=== PATIENT | female | born 1965 | race Caucasian/White ===

== ENCOUNTER 2024-02-01 10:28 | Emergency (ER) | payer OTHER ==
[2024-02-01 10:36] VITALS: BP 150/89; PULSE 91; RESP 18; TEMP 98
--- NOTE | 2024-02-01 12:04 | ED ---
Alcohol HPI - General Chief Complaint: Alcohol Stated Complaint: ETOH Time Seen by Provider: 02/01/24 10:35 Source: patient Mode of arrival: ambulatory Limitations: no limitations - History of Present Illness Initial Comments: 58-year-old female presents to the emergency department for alcohol intoxication. Patient was attempting to check into [facility]. She states that she drank a pint of fireball before going in. Patient was acting belligerent and therefore they wanted medical clearance before she is admitted. She denies any other substance abuse other than alcohol. She does express desire to quit. Patient is agitated that she had to be brought into the emergency department as she "just wants to go to rehab." - Related Data Home Medications Medication Instructions Recorded Confirmed Dextroamphetamine/Amphetamine 15 mg PO BID 02/01/24 02/01/24 [Adderall] Folic Acid 1 mg PO DAILY 02/01/24 02/01/24 Gabapentin 300 mg PO TID 02/01/24 02/01/24 Montelukast [Singulair] 10 mg PO DAILY 02/01/24 02/01/24 Venlafaxine HCl [Effexor XR] 75 mg PO DAILY 02/01/24 02/01/24 Vitamin B Complex 1 cap PO DAILY 02/01/24 02/01/24 amLODIPine [Norvasc] 5 mg PO DAILY 02/01/24 02/01/24 buPROPion XL [Wellbutrin XL] 300 mg PO DAILY 02/01/24 02/01/24 diazePAM [Valium] 5 mg PO QID 02/01/24 02/01/24 tiZANidine [Zanaflex] 4 mg PO TID 02/01/24 02/01/24 Albuterol Inhaler [Ventolin Hfa 2 puff INHALATION Q6HR 02/04/24 02/04/24 Inhaler] Fluticasone/Umeclidin/Vilanter 1 puff INHALATION DAILY 02/04/24 02/04/24 [Trelegy Ellipta 100-62.5-25] Allergies Allergy/AdvReac Type Severity Reaction Status Date / Time No Known Allergies Allergy Verified 02/01/24 19:09 Review of Systems ROS Statement: Those systems with pertinent positive or pertinent negative responses have been documented in the HPI. ROS Other: All systems not noted in ROS Statement are negative. Past Medical History Past Medical History: COPD Additional Past Medical History / Comment(s): withdrawl seizure. History of Any Multi-Drug Resistant Organisms: None Reported Past Surgical History: Bariatric Surgery, Section, Hernia Repair, Hysterectomy, Tonsillectomy Past Psychological History: No Psychological Hx Reported, Anxiety, Depression Smoking Status: Current every day smoker Past Alcohol Use History: Abuse, Daily, Heavy Past Drug Use History: None Reported General Exam Limitations: altered mental status General appearance: alert, appears intoxicated Head exam: Present: atraumatic, normocephalic, normal inspection Eye exam: Present: normal appearance, PERRL, EOMI. Absent: scleral icterus, conjunctival injection, periorbital swelling ENT exam: Present: normal exam, mucous membranes moist Respiratory exam: Present: normal lung sounds bilaterally. Absent: respiratory distress, wheezes, rales, rhonchi, stridor Cardiovascular Exam: Present: regular rate GI/Abdominal exam: Present: soft, normal bowel sounds. Absent: distended, tenderness, guarding, rebound, rigid Course Vital Signs 02/01/24 10:30 Temperature 98 F Pulse Rate 91 Respiratory 18 Rate Blood Pressure 150/89 O2 Sat by Pulse 98 Oximetry Medical Decision Making - Medical Decision Making Was pt. sent in by a medical professional or institution (, PA, STONE DRILLER HELPER, urgent care, hospital, or long-term...) When possible be specific @ -Patient sent in from [facility] Did you speak to anyone other than the patient for history (EMS, parent, family, police, friend...)? What history was obtained from this source @ -Spoke with EMS for history Did you review nursing and triage notes (agree or disagree)? Why? @ -I reviewed and agree with nursing and triage notes Were old charts reviewed (outside hosp., previous admission, EMS record, old EKG, old radiological studies, urgent care reports/EKG's, long-term records)? Report findings @ -I reviewed the chart from [facility] Differential Diagnosis (chest pain, altered mental status, abdominal pain women, abdominal pain men, vaginal bleeding, weakness, fever, dyspnea, syncope, headache, dizziness, GI bleed, back pain, seizure, CVA, palpatations, mental health, musculoskeletal)? @ -Differential Mental Health Depression, anxiety, bipolar, psychosis, schizophrenia, borderline personality, situational depression, adjustment disorder, behavioral disorder, brain tumor, malingering, substance abuse, encephalopathy, medication reaction, dementia, hypothyroidism, degenerative neurologic disorder, lupus.... This is not meant to be all-inclusive list EKG interpreted by me (3pts min.). @ -Not done X-rays interpreted by me (1pt min.). @ -None done CT interpreted by me (1pt min.). @ -None done U/S interpreted by me (1pt. min.). @ -None done What testing was considered but not performed or refused? (CT, X-rays, U/S, labs)? Why? @ -EPS clearance however patient states that she never made any comments about being suicidal What meds were considered but not given or refused? Why? @ -None Did you discuss the management of the patient with other professionals (professionals i.e. , PA, STONE DRILLER HELPER, lab, RT, psych nurse, social sciences instructor, production team manager, teacher, hydrographical technical officer, vocational case manager)? Give summary @ -No Was smoking cessation discussed for >3mins.? @ -No Was critical care preformed (if so, how long)? @ -No Were there social determinants of health that impacted care today? How? (Homelessness, low income, unemployed, alcoholism, drug addiction, transportation, low edu. Level, literacy, decrease access to med. care, fpc, rehab)? @ -Patient is trying to go to rehab Was there de-escalation of care discussed even if they declined (Discuss DNR or withdrawal of care, Hospice)? DNR status @ -No What co-morbidities impacted this encounter? (DM, HTN, Smoking, COPD, CAD, Cancer, CVA, ARF, Chemo, Hep., AIDS, mental health diagnosis, sleep apnea, morbid obesity)? @ -Alcohol abuse Was patient admitted / discharged? Hospital course, mention meds given and route, prescriptions, significant lab abnormalities, going to OR and other pertinent info. @ -Upon arrival patient seen and evaluated in hallway 18. Thorough history and physical exam was performed. Patient is agitated that she is transferred to our facility. She does not understand why her rehab facility cannot accept her while she is intoxicated. Patient's alcohol level is only 0.187. She is observed in the emergency department until she is clinically sober. At this time we do attempt to transfer the patient back to [facility]. They report that they cannot take the patient back because she made some suicidal comments while she was at the facility. They failed to send the patient was the petitioned. EMS never reported to us that she made suicidal comments and the patient is denying suicidal or homicidal comments to us. There is no hallucinating. Patient does not want to wait for a psychiatric evaluation so that she can complete the demands that [facility] has. I do not feel that I can hold the patient for psychiatric evaluation as I have no petition on record and patient is denying all symptoms to me. It is suggested to [facility] that they send a petition with the patient should they feel that they need a mental health evaluation. Patient was discharged with the understanding that she cannot go back to [facility] at this time Undiagnosed new problem with uncertain prognosis? @ -No Drug Therapy requiring intensive monitoring for toxicity (Heparin, Nitro, Insulin, Cardizem)? @ -No Were any procedures done? @ -No Diagnosis/symptom? @ -Acute alcohol intoxication Acute, or Chronic, or Acute on Chronic? @ -Acute Uncomplicated (without systemic symptoms) or Complicated (systemic symptoms)? @ -Uncomplicated Side effects of treatment? @ -No Exacerbation, Progression, or Severe Exacerbation? @ -No Poses a threat to life or bodily function? How? (Chest pain, USA, ID, pneumonia, PE, COPD, DKA, ARF, appy, cholecystitis, CVA, Diverticulitis, Homicidal, Suicidal, threat to staff... and all critical care pts) @ -No Disposition Clinical Impression: Alcoholic intoxication Disposition: HOME SELF-CARE Condition: Stable Instructions (If sedation given, give patient instructions): Alcohol Intox ication (ED) Additional Instructions: You are being transferred back to [facility] for rehab Is patient prescribed a controlled substance at d/c from ED?: No Referrals: None,Stated [Primary Care Provider] - 1-2 days Time of Disposition: 12:04
== END 2024-02-01 13:30 | disposition home or self-care (01) ==
LOC: EC 10:28
CPT/HCPCS: 99284

== ENCOUNTER 2024-02-01 16:21 | Inpatient (IN) | payer OTHER ==
--- NOTE | 2024-02-01 16:41 | ED ---
Psych HPI - General Source: patient, RN notes reviewed <Delaney Lion - Last Filed: 02/01/24 16:39> <Jeff Elkins - Last Filed: 02/01/24 22:10> - General Stated Complaint: ETOH, suicidal ideation Time Seen by Provider: 02/01/24 16:39 - History of Present Illness Initial Comments: Quick note-58 year old female presents emergency department chief complaint of alcohol taxation suicidal ideation. Patient was seen earlier this morning and was discharged back to [facility]. The patient is denying suicidal ideation. States that she drinks approximately 1 pint of alcohol per day with the last drink being at 09 100 this morning. (Delaney Lion) Dictation was produced using [employer] dictation software. please excuse any grammatical, word or spelling errors. Chief Complaint: 58-year-old female presents to the ER for mental evaluation History of Present Illness: Patient 58-year-old female who presents to the emergency department for mental evaluation. She is trying to get into [facility] for alcohol detox. States that they did not want her admitted there until she was evaluated for mental health. Is not sure why. She does report having history of suicidal ideation. States that she did not want to be evaluated by mental health earlier today was discharged. She Erika presents to the emergency department because she wants to try to get into [facility] for alcohol detox. States that she has been hospitalized before for alcohol withdra wal. Her last drink was earlier this morning. Patient started to feel shaky. The ROS documented in this emergency department record has been reviewed and confirmed by me. Those systems with pertinent positive or negative responses have been documented in the HPI. All other systems are other negative and/or noncontributory. (Jeff Elkins) - Related Data Home Medications Medication Instructions Recorded Confirmed Dextroamphetamine/Amphetamine 15 mg PO BID 02/01/24 02/01/24 [Adderall] Folic Acid 1 mg PO DAILY 02/01/24 02/01/24 Gabapentin 300 mg PO TID 02/01/24 02/01/24 Montelukast [Singulair] 10 mg PO DAILY 02/01/24 02/01/24 Venlafaxine HCl [Effexor XR] 75 mg PO DAILY 02/01/24 02/01/24 Vitamin B Complex 1 cap PO DAILY 02/01/24 02/01/24 amLODIPine [Norvasc] 5 mg PO DAILY 02/01/24 02/01/24 buPROPion XL [Wellbutrin XL] 300 mg PO DAILY 02/01/24 02/01/24 diazePAM [Valium] 5 mg PO QID 02/01/24 02/01/24 tiZANidine [Zanaflex] 4 mg PO TID 02/01/24 02/01/24 Allergies Allergy/AdvReac Type Severity Reaction Status Date / Time No Known Allergies Allergy Verified 02/01/24 19:09 Review of Systems ROS Other: All systems not noted in ROS Statement are negative. <Delaney Lion - Last Filed: 02/01/24 16:39> ROS Other: All systems not noted in ROS Statement are negative. <Jeff Elkins - Last Filed: 02/01/24 22:10> ROS Statement: Those systems with pertinent positive or pertinent negative responses have been documented in the HPI. Past Medical History Past Medical History: COPD Additional Past Medical History / Comment(s): withdrawl seizure. History of Any Multi-Drug Resistant Organisms: None Reported Past Surgical History: Bariatric Surgery, Section, Hernia Repair, Hysterectomy, Tonsillectomy Past Psychological History: No Psychological Hx Reported, Anxiety, Depression Smoking Status: Current every day smoker Past Alcohol Use History: Abuse, Daily, Heavy Past Drug Use History: None Reported <Delaney Lion - Last Filed: 02/01/24 16:39> General Exam <Delaney Lion - Last Filed: 02/01/24 16:39> <Jeff Elkins - Last Filed: 02/01/24 22:10> - General Exam Comments Initial Comments: Visual Physical Exam Vital signs reviewed General: Well-appearing, nontoxic, no acute distress. Head: Normocephalic, atraumatic Eyes: PERRLA, EOMI ENT: Airway patent Chest: Nonlabored breathing Skin: No visual rash, normal skin tone Neuro: Alert and oriented 3 Musculoskeletal: No gross abnormalities (Delaney Lion) PHYSICAL EXAM: General Impression: Alert and oriented x3, mildly tremulous HEENT: Normocephalic atraumatic, extra-ocular movements intact, pupils equal and reactive to light bilaterally, mucous membranes moist. Cardiovascular: Heart regular rate and rhythm Chest: Able to complete full sentences, no retractions, no tachypnea Abdomen: abdomen soft, non-tender, non-distended, no organomegaly Musculoskeletal: Pulses present and equal in all extremities, no peripheral edema Motor: no focal deficits noted Neurological: CN II-XII grossly intact, no focal motor or sensory deficits noted Skin: Intact with no visualized rashes Psych: Normal affect and mood (Jeff Elkins) Course Vital Signs 02/01/24 02/01/24 02/01/24 16:53 18:01 19:24 Temperature 97.9 F Pulse Rate 85 71 Respiratory 18 20 18 Rate Blood Pressure 143/93 129/89 127/82 O2 Sat by Pulse 97 99 99 Oximetry 02/01/24 20:44 Temperature Pulse Rate 70 Respiratory 16 Rate Blood Pressure 125/75 O2 Sat by Pulse 97 Oximetry Medical Decision Making <Delaney Lion - Last Filed: 02/01/24 16:39> - Lab Data Result diagrams: 02/01/24 18:27 02/01/24 18:27 <Jeff Elkins - Last Filed: 02/01/24 22:10> - Medical Decision Making I completed the quick note portion of this chart signed Delaney Lion PA-C (Delaney Lion) Was pt. sent in by a medical professional or institution ([facility]T [facility], CARRIER LOADER, urgent care, hospital, or residential...) When possible be specific @ -No Did you speak to anyone other than the patient for history (EMS, parent, family, police, friend...)? What history was obtained from this source @ -No Did you review nursing and triage notes (agree or disagree)? Why? @ -I reviewed and agree with nursing and triage notes Were old charts reviewed (outside hosp., previous admission, EMS record, old EKG, old radiological studies, urgent care reports/EKG's, residential records)? Report findings @ -No old charts were reviewed Differential Diagnosis (chest pain, altered mental status, abdominal pain women, abdominal pain men, vaginal bleeding, musculoskeletal, weakness, fever, dyspnea, syncope, headache, dizziness, GI bleed, back pain, seizure, CVA, palpatations, mental health)? @ -Differential Mental Health: Depression, anxiety, bipolar, psychosis, schizophrenia, borderline personality, situational depression, adjustment disorder, behavioral disorder, brain tumor, malingering, substance abuse, encephalopathy, medication reaction, dementia, hypothyroidism, degenerative neurologic disorder, lupus.... This is not meant to be all-inclusive list EKG interpreted by me (3pts min.). @ -None done X-rays interpreted by me (1pt min.). @ -None done CT interpreted by me (1pt min.). @ -None done U/S interpreted by me (1pt. min.). @ -None done What testing was considered but not performed or refused? (CT, X-rays, U/S, labs)? Why? @ -None What meds were considered but not given or refused? Why? @ -None Was smoking cessation discussed for >3mins.? @ -No Were there social determinants of health that impacted care today? How? (Homelessness, low income, unemployed, alcoholism, drug addiction, flowers sportation, low edu. Level, literacy, decrease access to med. care, care home, rehab)? @ -No Was there de-escalation of care discussed even if they declined (Discuss DNR or withdrawal of care, Hospice)? DNR status @ -No What co-morbidities impacted this encounter? (DM, HTN, Smoking, COPD, CAD, Cancer, CVA, ARF, Chemo, Hep., AIDS, mental health diagnosis, sleep apnea, morbid obesity)? @ -Alcoholism Was patient admitted / discharged? Hospital course, mention meds given and route, prescriptions, significant lab abnormalities, going to OR and other pertinent info. @ -58-year-old female presents emergency department for initial complaints of mental health evaluation. Patient was hoping to be evaluated mentally prior to admission to [facility]. Vital signs stable physical examination shows female who is slightly tremulous slightly agitated. Reports history of in- hospital treatment for alcohol withdrawals. Patient appears to be slightly withdrawing. Laboratory evaluation obtained showing electrolyte derangement. Patient given multivitamin. Case discussed with Dr. Dominique for admission. Did you discuss the management of the patient with other professionals (professionals i.e. , PA, CARRIER LOADER, lab, RT, psych nurse, social insurance administrator, personal banking representative, teacher, disability insurance hearing officer, director case management)? Give summary @ -See above Was critical care preformed (if so, how long)? @ -No Undiagnosed new problem with uncertain prognosis? @ -No Drug Therapy requiring intensive monitoring for toxicity (Heparin, Nitro, Insulin, Cardizem)? @ -No Were any procedures done? @ -No Diagnosis/symptom? Acute, or Chronic, or Acute on Chronic? Uncomplicated (without systemic symptoms) or Complicated (systemic symptoms)? @ -Alcohol withdrawal Side effects of treatment? @ -No Exacerbation, Progression, or Severe Exacerbation? @ -No Poses a threat to life or bodily function? How? (Chest pain, USA, [place], pneumonia, PE, COPD, DKA, ARF, appy, cholecystitis, CVA, Diverticulitis, Homicidal, Suicidal, threat to staff... and all critical care pts) @ -yes (Jeff Elkins) - Lab Data Lab Results 02/01/24 02/01/24 02/01/24 Range/Units 18:27 18:27 19:22 WBC 4.6 (3.8-10.6) k/uL RBC 3.69 L (3.80-5.40) m/uL Hgb 12.7 (11.4-16.0) gm/dL Hct 38.2 (34.0-46.0) % MCV 103.3 H (80.0-100.0) fL MCH 34.3 (25.0-35.0) pg MCHC 33.2 (31.0-37.0) g/dL RDW 13.1 (11.5-15.5) % Plt Count 427 (150-450) k/uL MPV 7.3 Neutrophils % 57 % Lymphocytes % 30 % Monocytes % 9 % Eosinophils % 1 % Basophils % 1 % Neutrophils # 2.6 (1.3-7.7) k/uL Lymphocytes # 1.4 (1.0-4.8) k/uL Monocytes # 0.4 (0-1.0) k/uL Eosinophils # 0.1 (0-0.7) k/uL Basophils # 0.1 (0-0.2) k/uL Macrocytosis Slight Sodium 142 (137-145) mmol/L Potassium 3.1 L (3.5-5.1) mmol/L Chloride 111 H (98-107) mmol/L Carbon Dioxide 27 (22-30) mmol/L Anion Gap 4 mmol/L BUN 10 (7-17) mg/dL Creatinine 0.68 (0.52-1.04) mg/dL Est GFR (CKD-EPI)AfAm >90 (>60 ml/min/1.73 sqM) Est GFR (CKD-EPI)NonAf >90 (>60 ml/min/1.73 sqM) Glucose 73 L (74-99) mg/dL Calcium 8.3 L (8.4-10.2) mg/dL Magnesium 1.5 L (1.6-2.3) mg/dL Urine Opiates Screen Not Detected (NotDetected) Ur Oxycodone Screen Not Detected (NotDetected) Urine Methadone Screen Not Detected (NotDetected) Ur Barbiturates Screen Not Detected (NotDetected) U Tricyclic Antidepress Not Detected (NotDetected) Ur Phencyclidine Scrn Not Detected (NotDetected) Ur Amphetamines Screen Not Detected (NotDetected) U Methamphetamines Scrn Not Detected (NotDetected) U Benzodiazepines Scrn Detected H (NotDetected) Urine Cocaine Screen Not Detected (NotDetected) U Marijuana (THC) Screen Detected H (NotDetected) Serum Alcohol 131 mg/dL Disposition <Delaney Lion - Last Filed: 02/01/24 16:39> Decision Time: 22:10 <Jeff Elkins - Last Filed: 02/01/24 22:10> Clinical Impression: Alcohol withdrawal Disposition: ADMITTED IP TO THIS [facility] Condition: Fair Referrals: None,Stated [Primary Care Provider] - 1-2 days
[2024-02-01] MEDS: LORazepam 2 MG/ML INJ IV PRN ×2 (18:19→19:27)
[2024-02-01] MEDS: ONDANSETRON 4 MG/2 ML VIAL IVP STA (18:20)
[2024-02-01 18:37] LABS: Basophils # (A) 0.1 k/uL (0-0.2); Basophils % (A) 1 %; Eosinophils # (A) 0.1 k/uL (0-0.7); Eosinophils % (A) 1 %; HCT 38.2 % (34.0-46.0); HGB 12.7 gm/dL (11.4-16.0); Lymphocytes # (A) 1.4 k/uL (1.0-4.8); Lymphocytes % (A) 30 %; MCH 34.3 pg (25.0-35.0); MCHC 33.2 g/dL (31.0-37.0); MCV 103.3 fL (80.0-100.0); Macrocytosis Slight; Mean Platelet Volume 7.3; Monocytes # (A) 0.4 k/uL (0-1.0); Monocytes % (A) 9 %; Neutrophils # (A) 2.6 k/uL (1.3-7.7); Neutrophils % (A) 57 %; Platelet Count 427 k/uL (150-450); RBC 3.69 m/uL (3.80-5.40); RDW 13.1 % (11.5-15.5); WBC 4.6 k/uL (3.8-10.6)
[2024-02-01 18:46] LABS: African American GFR (CKD) >90 (>60 ml/min/1.73 sqM); Anion Gap 4 mmol/L; Blood Urea Nitrogen 10 mg/dL (7-17); Calcium 8.3 mg/dL (8.4-10.2); Carbon Dioxide 27 mmol/L (22-30); Chloride 111 mmol/L (98-107); Glucose 73 mg/dL (74-99); Magnesium 1.5 mg/dL (1.6-2.3); Non-African American GFR(CKD) >90 (>60 ml/min/1.73 sqM); Potassium 3.1 mmol/L (3.5-5.1); Sodium 142 mmol/L (137-145)
[2024-02-01 18:50] LABS: Alcohol 131 mg/dL
[2024-02-01 20:03] LABS: Amphetamine Screen,Urine Not Detected (NotDetected); Barbiturate Screen,Urine Not Detected (NotDetected); Benzodiazepines Screen,Urine Detected (NotDetected); Cocaine Screen,Urine Not Detected (NotDetected); Methadone Screen, Urine Not Detected (NotDetected); Opiate Screen,Urine Not Detected (NotDetected); Oxycodone Screen, Urine Not Detected (NotDetected); Phencyclidine Screen,Urine Not Detected (NotDetected); Tricyclic Antidepressant,Urine Not Detected (NotDetected); Urn Cannabinoid Scrn Detected (NotDetected)
[2024-02-01] MEDS ORDERED: NALOXONE 0.4 MG/ML 1 ML VIAL IV PRN (22:07)
[2024-02-02] MEDS: MULTIVITAMINS, THERA 1 EACH TAB PO SCH (00:25)
[2024-02-02] MEDS: SODIUM CHLORIDE 0.9% 1,000 ML IV SCH (00:25)
[2024-02-02] MEDS: LORazepam 2 MG/ML INJ IV PRN (06:13)
[2024-02-02] MEDS ORDERED: CALCIUM CARBONATE 500 MG CHEWABLE PO PRN (10:16)
[2024-02-02] MEDS: AMPHETAMINE PO SCH (10:48)
[2024-02-02] MEDS: DEXTROAMPHETAMINE PO SCH (10:48)
[2024-02-02] MEDS: PANTOPRAZOLE 40 MG TABLET PO SCH (10:52)
[2024-02-02] MEDS: amLODIPine 5 MG TAB PO SCH (10:52)
[2024-02-02] MEDS: tiZANidine 4 MG TAB PO SCH (10:52)
[2024-02-02] MEDS: GABAPENTIN 300 MG CAP PO SCH (10:52)
[2024-02-02] MEDS: FOLIC ACID 1 MG TAB PO SCH (10:52)
[2024-02-02] MEDS: VENLAFAXINE HCL ER 75 MG CAP PO SCH (10:52)
[2024-02-02] MEDS: MONTELUKAST 10 MG TAB PO SCH (10:52)
[2024-02-02] MEDS: buPROPion XL 300 MG TAB.ER.24H PO SCH (10:52)
[2024-02-02] MEDS: NON FORMULARY DRUG (Vitamin B Complex [Vitamin B Complex] 1 EACH Capsule) PO SCH (10:55)
[2024-02-02] MEDS: NICOTINE 14MG/24HR PATCH TRANSDERM SCH (13:46)
--- NOTE | 2024-02-02 15:49 | P.CN ---
Psychiatric Consult - . Consult date: 02/02/24 Consult:: 02/02/24 15:47 ID: The patient is a 58 years-old, female, who lives in [place]. C/C I am her for detox. HPI; The patient noted that she was here yesterday and was discharged to [facility]. She went to [facility] in an intoxicated stage. She was sent back here for intoxication, detox and suicidal ideations. The patient noted that she does not know, who thought that she was suicidal. She stated, I want to live, I do not want to . The patient noted that she wants to go through detox and then go back to [facility]. The patient noted she is being followed at [facility] for Depression. She is on Effexor, Wellbutrin, Gabapentin, and Valium. She sees her psychiatrist once a month and her therapist weekly. She has been compliant with medications, as per patient and last saw her psychiatrist a month ago. PPH: The patient was first sought psychiatric treatment around age 32. She has had 5 psychiatric admissions since then for depression. Her last admission was in 2017. She has diagnoses of PTSD and Depression. She denied any h/o suicidal or homicidal behavior in the past. Alcohol and drug abuse history: The patient noted she is a heavy alcoholic and has had Dts in the past. She has also abused Benzodiazepines. She denied abuse of any other drugs. PMH: COPD MSE: Alert and attentive. Oriented times three. Pleasant and cooperative. Sometimes she was a little irritable but stated that she is going through Withdrawal. Dressed and groomed appropriately. Psychomotor activity: Normal Speech; normal in tone, quality, and quantity. Mood: I am anxious and a little irritable. Affect: anxious, worried, fearful No SI or HI noted. Perception: No A/V hallucinations noted. Thought content: Thought Content: No paranoia or other delusional thinking noted. Thought Process: Normal. Cognition: Intact Judgment and Insight: Poor Diagnosis: H/O Depression, PTSD Alcohol dependence Plan and Recommendations: A Continue Detox as per your orders. Will suggest holding Wellbutrin and Effexor for 2-3 days in Detox and then reinstate gradually.
[2024-02-02] MEDS: SODIUM CHLORIDE 0.9% 1,000 ML with MVI, ADULT NO.4 WITH VIT K 10 ML, THIAMINE 100 MG, F... IV ONE (21:50)
[2024-02-03 09:49] LABS: HCT 36.5 % (37.2-46.3); HGB 12.4 g/dL (12.0-15.0); MCH 34.3 pg (27.0-32.0); MCV 100.8 FL (80.0-97.0); Mean Platelet Volume 9.7 FL (9.5-12.2); NRBC Per 100 WBC 0 X 10*3/uL (0.00-0.01); Platelet Count 358 X 10*3/uL (140-440); RBC 3.62 X 10*6/uL (4.10-5.20); RDW 13.1 % (11.5-14.5); WBC 6.69 X 10*3/uL (4.50-10.00)
[2024-02-03 09:50] LABS: Basophils # (A) 0.09 X 10*3/uL (0.00-0.10); Basophils % (A) 1.3 %; Eosinophils # (A) 0.18 X 10*3/uL (0.04-0.35); Eosinophils % (A) 2.7 %; Lymphocytes # (A) 2.01 X 10*3/uL (0.90-5.00); Monocytes # (A) 0.78 X 10*3/uL (0.20-1.00); Monocytes % (A) 11.7 %; Neutrophils % (A) 53.9 %
[2024-02-03 10:14] LABS: BUN/Creat Ratio 5.25 Ratio (12.00-20.00); Blood Urea Nitrogen 4.2 mg/dL (9.0-27.0); Calcium 8.6 mg/dL (8.7-10.3); Chloride 108 mmol/L (96-109); Glucose 87 mg/dL (70-110); Potassium 2.6 mmol/L (3.5-5.5); Sodium 144 mmol/L (135-145)
[2024-02-03] MEDS ORDERED: Potassium Replacement Protocol 1 EACH MISC MISCELLANE PRN ×2 (10:52→22:06)
[2024-02-03] MEDS: POTASSIUM CHLORIDE ER 20 MEQ TAB.ER PO SCH ×3 (11:40→22:12)
[2024-02-03] MEDS ORDERED: Magnesium Replacement Protocol 1 EACH MISC MISCELLANE PRN (11:42)
[2024-02-03] MEDS: MAGNESIUM SULFATE-D5W PMX 1 GM in DEXTROSE/WATER 1 100ML.BAG IVPB SCH (12:03)
--- NOTE | 2024-02-03 14:54 | P.CN ---
Psychiatric Consult - . Consult date: 02/03/24 Consult:: 02/03/24 14:42 Psychiatric Consultation Follow-up Note IDENTIFYING DATA: This patient is a 58 year old woman who presented with acute alcohol intoxication and concern for suicidal ideation. REASON FOR REFERRAL: Psychiatry was consulted on 02/02/24 for suicidal ideation. Please see initial note for more details. HISTORY OF PRESENT ILLNESS: Ursula Olivia is a 58-year-old woman with a history of alcohol use disorder, previously in sustained remission, who presented to the emergency department acutely intoxicated with concern for suicidal ideation. She was admitted for management of alcohol withdrawal and a psychiatry consult was requested on 02/02/2024. At the time of that evaluation she denied suicidal ideation. She was seen today for follow-up during which she explained that her words had been misunderstood and her initial presentation. She did not want to she reports missing her now and "wanted to see him." She is adamant that she is not suicidal at this time. 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 She explained that she became overwhelmed with her work and ended up returning to alcohol use as a means of coping. She also denies homicidal ideation and is not experiencing any psychotic symptoms. In regards to the course of her withdrawal she does feel that her present symptoms are not yet resolved, and she feels she needs more time to reach her previously stable baseline. INTERIM HISTORY: No updates. ALLERGIES: as per EMR. MENTAL STATUS EXAM: General Appearance: Patient appears to be stated age is alert, pleasant, and cooperative. Patient appears to have fair hygiene and grooming wearing hospital gown with fair eye contact. Behavior: Patient is calmly lying in bed without any agitated behavior. Speech: Patient's speech is fluent and non-pressured. Mood/Affect: Patient reports their mood is "good", affect is congruent Suicidality/Homicidality: Patient denies having any suicidal or homicidal ideation intent or plan. Perceptions: Patient denies any visual hallucinations and denies any auditory hallucinations Though content/process: There is no evidence of any delusional thought content and thought process is linear and goal-directed. Memory and concentration: AOX3, grossly intact for the purposes of this session. Judgment and insight: Fair IMPRESSIONS: - Alcohol use disorder with acute withdrawal - History of major depressive disorder PLAN: -At this time patient DOES NOT meet criteria for inpatient psychiatric admission. -Can discontinue 1:1 sitter at this time as patient is not currently an imminent threat to themselves -Alcohol withdrawal management per primary team. Continue to monitor vital signs. -Request iron worker apprentice support to provide patient with outpatient mental health/psychiatry resources for appropriate follow up upon discharge. -Dietitian Assistant spoke with patient about substance abuse and patient communicated her plan moving forward to support recovery, which includes her desire to go to rehab. -Psychiatry will sign off at this time. -Please contact with any questions. Braden Cintron MD 02/03/24 14:52
--- NOTE | 2024-02-03 15:10 | P.HPIM ---
History of Present Illness H&P Date: 02/02/24 Chief Complaint: Alcohol abuse/pending withdrawal 58-year-old female, history of alcohol abuse who presents to the emergency department for mental evaluation. She is trying to get into [facility] for alcohol detox. Patient reports she drinks approximately 1 pint of alcohol per day with last drink this morning; states that they did not want her admitted there until she was evaluated for mental health. Is not sure why. She does report having history of suicidal ideation. States that she did not want to be evaluated by mental health earlier today was discharged. She Erika presents to the emergency department because she wants to try to get into [facility] for alcohol detox. States that she has been hospitalized before for alcohol withdrawal. Her last drink was earlier this morning. Patient started to feel shaky. Review of Systems REVIEW OF SYSTEMS: CONSTITUTIONAL: No fever, no malaise, no fatigue. HEENT: No recent visual problems or hearing problems. Denied any sore throat. CARDIOVASCULAR: No chest pain, orthopnea, PND, no palpitations, no syncope. PULMONARY: No shortness of breath, no cough, no hemoptysis. GASTROINTESTINAL: No diarrhea, no nausea, no vomiting, no abdominal pain. NEUROLOGICAL: No headaches, no weakness, no numbness. HEMATOLOGICAL: Denies any bleeding or petechiae. GENITOURINARY: Denies any burning micturition, frequency, or urgency. MUSCULOSKELETAL/RHEUMATOLOGICAL: Denies any joint pain, swelling, or any muscle pain. ENDOCRINE: Denies any polyuria or polydipsia. The rest of the 14-point review of systems is negative. Past Medical History Past Medical History: COPD Additional Past Medical History / Comment(s): ? withdrawal seizure. History of Any Multi-Drug Resistant Organisms: None Reported Past Surgical History: Bariatric Surgery, Section, Hernia Repair, Hysterectomy, Tonsillectomy Past Psychological History: Anxiety, Depression Smoking Status: Current every day smoker Past Alcohol Use History: Abuse, Daily, Heavy Additional Past Alcohol Use History / Comment(s): Drinks about 1/5 fireball a day per pt Past Drug Use History: Marijuana Medications and Allergies Home Medications Medication Instructions Recorded Confirmed Type Dextroamphetamine/Amphetamine 15 mg PO BID 02/01/24 02/01/24 History [Adderall] Folic Acid 1 mg PO DAILY 02/01/24 02/01/24 History Gabapentin 300 mg PO TID 02/01/24 02/01/24 History Montelukast [Singulair] 10 mg PO DAILY 02/01/24 02/01/24 History Venlafaxine HCl [Effexor XR] 75 mg PO DAILY 02/01/24 02/01/24 History Vitamin B Complex 1 cap PO DAILY 02/01/24 02/01/24 History amLODIPine [Norvasc] 5 mg PO DAILY 02/01/24 02/01/24 History buPROPion XL [Wellbutrin XL] 300 mg PO DAILY 02/01/24 02/01/24 History diazePAM [Valium] 5 mg PO QID 02/01/24 02/01/24 History tiZANidine [Zanaflex] 4 mg PO TID 02/01/24 02/01/24 History Allergies Allergy/AdvReac Type Severity Reaction Status Date / Time No Known Allergies Allergy Verified 02/01/24 19:09 Physical Exam Vitals: Vital Signs Temp Pulse Pulse Resp BP BP Pulse Ox 02/02/24 13:09 98.6 F 54 L 16 115/74 98 02/02/24 09:19 98.7 F 70 18 143/71 98 02/02/24 08:02 98.3 F 62 18 139/89 99 02/02/24 01:51 98.6 F 101 H 18 136/83 98 02/01/24 20:44 70 16 125/75 97 02/01/24 19:24 71 18 127/82 99 02/01/24 18:01 85 20 129/89 99 02/01/24 16:53 97.9 F 18 143/93 97 Intake and Output 02/01/24 02/02/24 02/02/24 22:59 06:59 14:59 Intake Total 540 Balance 540 Intake: Oral 540 Other: Voiding Method Toilet # Voids 3 # Bowel Movements 2 Weight 50.802 kg 50.802 kg General Impression: Alert and oriented x3, mildly tremulous HEENT: Normocephalic atraumatic, extra-ocular movements intact, pupils equal and reactive to light bilaterally, mucous membranes moist. Cardiovascular: Heart regular rate and rhythm Chest: Able to complete full sentences, no retractions, no tachypnea Abdomen: abdomen soft, non-tender, non-distended, no organomegaly Musculoskeletal: Pulses present and equal in all extremities, no peripheral edema Motor: no focal deficits noted Neurological: CN II-XII grossly intact, no focal motor or sensory deficits noted Skin: Intact with no visualized rashes Psych: Normal affect and mood Results CBC & Chem 7: 02/03/24 05:45 02/03/24 05:45 Labs: Abnormal Lab Results - Last 24 Hours (Table) 02/01/24 02/01/24 02/01/24 Range/Units 18:27 18:27 19:22 RBC 3.69 L (3.80-5.40) m/uL MCV 103.3 H (80.0-100.0) fL Potassium 3.1 L (3.5-5.1) mmol/L Chloride 111 H (98-107) mmol/L Glucose 73 L (74-99) mg/dL Calcium 8.3 L (8.4-10.2) mg/dL Magnesium 1.5 L (1.6-2.3) mg/dL U Benzodiazepines Scrn Detected H (NotDetected) U Marijuana (THC) Screen Detected H (NotDetected) Thrombosis Risk Factor Assmnt - Choose All That Apply Any of the Below Risk Factors Present?: Yes Each Factor Represents 1 point: Abnormal pulmonary function (COPD), Age 41-60 years Other Risk Factors: No Other congenital or acquired thrombophilia - If yes, enter type in comment: No Thrombosis Risk Factor Assessment Total Risk Factor Score: 2 Thrombosis Risk Factor Assessment Level: Low Risk Assessment and Plan Assessment: 1. Alcohol abuse/pending withdrawal -Patient will be admitted for further treatment; IV fluids in form of banana bag -- CIWA protocol with Ativan in place -- Vitamin B12 and folic acid supplement -Psych recommending to hold Wellbutrin and Effexor for 2 to 3 days in detox and then reinstate gradually 2. Hypokalemia; supplemented in ED; repeat potassium level remains stable; will continue to monitor electrolytes and supplement as needed 3. Hypomagnesemia; magnesium of 1.5 in ED; supplemented; monitor electrolytes 4. Hypertension; amlodipine 5 mg daily 5. Asthma; in exacerbation; Singulair 10 mg daily; continue with home inhaler therapy DVT prophylaxis-SCDs CODE STATUS; Full code
--- NOTE | 2024-02-03 15:12 | P.PN ---
Subjective Progress Note Date: 02/03/24 58-year-old female, history of alcohol abuse who presents to the emergency department for mental evaluation. She is trying to get into [facility] for alcohol detox. Patient reports she drinks approximately 1 pint of alcohol per day with last drink this morning; states that they did not want her admitted there until she was evaluated for mental health. Is not sure why. She does report having history of suicidal ideation. States that she did not want to be evaluated by mental health earlier today was discharged. She Erika presents to the emergency department because she wants to try to get into [facility] for alcohol detox. States that she has been hospitalized before for alcohol withd alexandre. Her last drink was earlier this morning. Patient started to feel shaky. Objective - Vital Signs Vital signs: Vital Signs Temp 99 F 02/03/24 08:00 Pulse 61 02/03/24 08:00 Resp 17 02/03/24 08:00 BP 132/74 02/03/24 08:00 Pulse Ox 95 02/03/24 08:00 FiO2 Intake & Output 02/02/24 02/03/24 02/03/24 18:59 06:59 18:59 Intake Total 540 Balance 540 Weight 50.802 kg Intake: Oral 540 Other: Voiding Method Toilet Toilet # Voids 3 2 - Exam General Impression: Alert and oriented x3, mildly tremulous HEENT: Normocephalic atraumatic, extra-ocular movements intact, pupils equal and reactive to light bilaterally, mucous membranes moist. Cardiovascular: Heart regular rate and rhythm Chest: Able to complete full sentences, no retractions, no tachypnea Abdomen: abdomen soft, non-tender, non-distended, no organomegaly Musculoskeletal: Pulses present and equal in all extremities, no peripheral edema Motor: no focal deficits noted Neurological: CN II-XII grossly intact, no focal motor or sensory deficits noted Skin: Intact with no visualized rashes Psych: Normal affect and mood - Labs CBC & Chem 7: 02/03/24 05:45 02/03/24 05:45 Labs: Abnormal Lab Results - Last 24 Hours (Table) 02/03/24 02/03/24 Range/Units 05:45 05:45 RBC 3.62 L (4.10-5.20) X 10*6/uL Hct 36.5 L (37.2-46.3) % MCV 100.8 H (80.0-97.0) FL MCH 34.3 H (27.0-32.0) pg Potassium 2.6 A* (3.5-5.5) mmol/L BUN 4.2 L (9.0-27.0) mg/dL BUN/Creatinine Ratio 5.25 L (12.00-20.00) Ratio Calcium 8.6 L (8.7-10.3) mg/dL Assessment and Plan Assessment: 1. Alcohol abuse/pending withdrawal -Patient will be admitted for further treatment; IV fluids in form of banana bag -- CIWA protocol with Ativan in place -- Vitamin B12 and folic acid supplement -Psych recommending to hold Wellbutrin and Effexor for 2 to 3 days in detox and then reinstate gradually 2. Hypokalemia; supplemented in ED; repeat potassium level remains stable; will continue to monitor electrolytes and supplement as needed 3. Hypomagnesemia; magnesium of 1.5 in ED; supplemented; monitor electrolytes 4. Hypertension; amlodipine 5 mg daily 5. Asthma; in exacerbation; Singulair 10 mg daily; continue with home inhaler therapy DVT prophylaxis-SCDs CODE STATUS; Full code
[2024-02-04] MEDS: diazePAM 5 MG TAB PO SCH ×2 (08:31→21:00)
[2024-02-04 10:46] LABS: Basophils # (A) 0.07 X 10*3/uL (0.00-0.10); Basophils % (A) 0.8 %; Eosinophils # (A) 0.17 X 10*3/uL (0.04-0.35); Eosinophils % (A) 1.8 %; HCT 36.3 % (37.2-46.3); HGB 11.9 g/dL (12.0-15.0); Lymphocytes # (A) 1.77 X 10*3/uL (0.90-5.00); Lymphocytes % (A) 19.1 %; MCH 34.2 pg (27.0-32.0); MCHC 32.8 g/dL (32.0-37.0); MCV 104.3 FL (80.0-97.0); Monocytes # (A) 0.87 X 10*3/uL (0.20-1.00); Monocytes % (A) 9.4 %; NRBC Per 100 WBC 0 X 10*3/uL (0.00-0.01); Neutrophils # (A) 6.36 X 10*3/uL (1.80-7.70); Neutrophils % (A) 68.7 %; Platelet Count 335 X 10*3/uL (140-440); RBC 3.48 X 10*6/uL (4.10-5.20); RDW 13.5 % (11.5-14.5); WBC 9.26 X 10*3/uL (4.50-10.00)
[2024-02-04 11:12] LABS: Magnesium 1.9 mg/dL (1.5-2.4)
[2024-02-04 12:26] LABS: BUN/Creat Ratio 4.38 Ratio (12.00-20.00); Blood Urea Nitrogen 3.5 mg/dL (9.0-27.0); Glucose 115 mg/dL (70-110)
[2024-02-04 12:27] LABS: Calcium 8.4 mg/dL (8.7-10.3); Chloride 111 mmol/L (96-109); Potassium 4.4 mmol/L (3.5-5.5); Sodium 145 mmol/L (135-145)
--- NOTE | 2024-02-04 18:15 | P.PN ---
Subjective Progress Note Date: 02/04/24 58-year-old female, history of alcohol abuse who presents to the emergency department for mental evaluation. She is trying to get into [facility] for alcohol detox. Patient reports she drinks approximately 1 pint of alcohol per day with last drink this morning; states that they did not want her admitted there until she was evaluated for mental health. Is not sure why. She does report having history of suicidal ideation. States that she did not want to be evaluated by mental health earlier today was discharged. She Erika presents to the emergency department because she wants to try to get into [facility] for alcohol detox. States that she has been hospitalized before for alcohol withd alexandre. Her last drink was earlier this morning. Patient started to feel shaky. 02/04/2024 Patient is seen and evaluated ambulating in hallway; signs are stable Remains on IV Ativan per [facility] protocol-- -Remains on IV fluids Patient is clinically stable; plan is to transfer patient to [facility] from the hospital due to concern of recurrent alcohol abuse if patient discharged home --Discharge to [facility] once arrangements are made Objective - Vital Signs Vital signs: Vital Signs Temp 98.7 F 02/04/24 07:51 Pulse 75 02/04/24 07:51 Resp 18 02/04/24 07:51 BP 139/85 02/04/24 07:51 Pulse Ox 95 02/04/24 07:51 FiO2 Intake & Output 02/03/24 02/04/24 02/04/24 18:59 06:59 18:59 Intake Total 1080 590 Balance 1080 590 Intake: Oral 1080 590 Other: Voiding Method Toilet Toilet Toilet # Voids 1 3 - Exam General Impression: Alert and oriented x3, mildly tremulous HEENT: Normocephalic atraumatic, extra-ocular movements intact, pupils equal and reactive to light bilaterally, mucous membranes moist. Cardiovascular: Heart regular rate and rhythm Chest: Able to complete full sentences, no retractions, no tachypnea Abdomen: abdomen soft, non-tender, non-distended, no organomegaly Musculoskeletal: Pulses present and equal in all extremities, no peripheral edema Motor: no focal deficits noted Neurological: CN II-XII grossly intact, no focal motor or sensory deficits noted Skin: Intact with no visualized rashes Psych: Normal affect and mood - Labs CBC & Chem 7: 02/04/24 04:28 02/04/24 04:22 Labs: Abnormal Lab Results - Last 24 Hours (Table) 02/03/24 02/04/24 Range/Units 15:55 04:28 RBC 3.48 L (4.10-5.20) X 10*6/uL Hgb 11.9 L (12.0-15.0) g/dL Hct 36.3 L (37.2-46.3) % MCV 104.3 H (80.0-97.0) FL MCH 34.2 H (27.0-32.0) pg Potassium 3.0 L (3.5-5.1) mmol/L Assessment and Plan Assessment: 1. Alcohol abuse/pending withdrawal -Patient will be admitted for further treatment; IV fluids in form of banana bag -- CIWA protocol with Ativan in place -- Vitamin B12 and folic acid supplement -Psych recommending to hold Wellbutrin and Effexor for 2 to 3 days in detox and then reinstate gradually 2. Hypokalemia; supplemented in ED; repeat potassium level remains stable; will continue to monitor electrolytes and supplement as needed 3. Hypomagnesemia; magnesium of 1.5 in ED; supplemented; monitor electrolytes 4. Hypertension; amlodipine 5 mg daily 5. Asthma; in exacerbation; Singulair 10 mg daily; continue with home inhaler therapy DVT prophylaxis-SCDs CODE STATUS; Full code
[2024-02-04] MEDS: ONDANSETRON 4 MG/2 ML VIAL IVP PRN (20:38)
[2024-02-05] MEDS: diphenhydrAMINE 50 MG/ML 1 ML VIAL IVP STA (16:05)
--- NOTE | 2024-02-05 16:05 | P.PN ---
Subjective 58-year-old female, history of alcohol abuse who presents to the emergency department for mental evaluation. She is trying to get into [facility] for alcohol detox. Patient reports she drinks approximately 1 pint of alcohol per day with last drink this morning; states that they did not want her admitted there until she was evaluated for mental health. Is not sure why. She does report having history of suicidal ideation. States that she did not want to be evaluated by mental health earlier today was discharged. She Erika presents to [facility] emergency department because she wants to try to get into [facility] for alcohol detox. States that she has been hospitalized before for alcohol withdrawal. Her last drink was earlier this morning. Patient started to feel shaky. 02/04/2024 Patient is seen and evaluated ambulating in hallway; signs are stable Remains on IV Ativan per [facility] protocol-- -Remains on IV fluids Patient is clinically stable; plan is to transfer patient to [place] from the hospital due to concern of recurrent alcohol abuse if patient discharged home --Discharge to [place] once arrangements are made 02/04 Patient was admitted with alcohol withdrawal and currently on [facility] protocol. Patient yesterday was agitated and placed on Valium 5 mg 4 times daily. Patient states that she takes this dose of Valium at home. Will order dose to 3 mg every 6 hours. To the patient room she was very agitated anxious she was hitting the pillow with her hand and looks very nervous asking for more medication. Denies any other specific symptoms like chest pain or dyspnea or headache or dizziness or weakness Patient already evaluated by psychiatrist and the finding does not meet criteria for inpatient Patient herself wants to go to [place] for detox but today is a holiday Will give Benadryl 50 mg IV x 1 on trazodone at bedtime. Objective - Vital Signs Vital signs: Vital Signs Temp 98.6 F 02/05/24 14:00 Pulse 71 02/05/24 14:00 Resp 18 02/05/24 14:00 BP 128/67 02/05/24 14:00 Pulse Ox 96 02/05/24 14:00 FiO2 Intake & Output 02/04/24 02/05/24 02/05/24 18:59 06:59 18:59 Intake Total 1080 Balance 1080 Intake: Oral 1080 Other: Voiding Method Toilet Toilet Toilet # Voids 3 2 - Exam GENERAL: The patient is alert and oriented x3, not in any acute distress. Well developed, well nourished. HEENT: Pupils are round and equally reacting to light. EOMI. No scleral icterus. No conjunctival pallor. Normocephalic, atraumatic. No pharyngeal erythema. No thyromegaly. CARDIOVASCULAR: S1 and S2 present. No murmurs, rubs, or gallops. PULMONARY: Chest is clear to auscultation, no wheezing , no crackles. ABDOMEN: Soft, nontender, nondistended, normoactive bowel sounds. No palpable organomegaly. MUSCULOSKELETAL: No joint swelling or deformity. EXTREMITIES: No cyanosis, clubbing, or pedal edema. NEUROLOGICAL: Gross neurological examination did not reveal any focal deficits. SKIN: No rashes. no petechiae. -Psych: Patient is very anxious and agitated. No tremor of the upper extremity. Sitter at bedside - Labs CBC & Chem 7: 02/04/24 04:28 02/04/24 04:22 Assessment and Plan Assessment: 1. Alcohol abuse/ withdrawal -Patient will be admitted for further treatment; IV fluids in form of banana bag -- CIWA protocol with Ativan in place -- Vitamin B12 and folic acid supplement -- Psych evaluated the patient, patient does not meet criteria for inpatient psych unit -- On Wellbutrin and Effexor. Add trazodone --Patient is motivated to go to [place] 2. Hypokalemia; supplemented in ED; repeat potassium level remains stable; will continue to monitor electrolytes and supplement as needed 3. Hypomagnesemia; magnesium of 1.5 in ED; supplemented; monitor electrolytes 4. Hypertension; amlodipine 5 mg daily 5. Asthma; in exacerbation; Singulair 10 mg daily; continue with home inhaler therapy DVT prophylaxis-SCDs CODE STATUS; Full code
[2024-02-05] MEDS: diazePAM 5 MG TAB PO STA (16:32)
[2024-02-05 20:40] VITALS: RESP 16
[2024-02-05] MEDS: traZODone HCL 50 MG TAB PO SCH (21:59)
[2024-02-05] MEDS: diazePAM 2 MG TAB PO SCH (22:05)
[2024-02-06] MEDS: ALPRAZolam 0.25 MG TAB PO STA (00:09)
[2024-02-06 08:00] VITALS: BP 133/76; PULSE 67; TEMP 98.1
--- NOTE | 2024-02-07 10:53 | P.DS ---
Providers Date of admission: 02/01/24 22:07 Attending physician: Mily Menard MD Consults: 02/01/24 18:03 Consult Physician Routine Consulting Provider: Jovanny Howell Consult Reason/Comments: mental health eval per request by [facility] Do you want consulting provider notified?: Yes Primary care physician: Stated None Hospital Course: Please note patient was not discharged but left AMA Diagnoses: Alcohol use disorder Alcohol withdrawal, resolved Anxiety and possible depression Electrolyte abnormalities with hypokalemia and hypomagnesemia Hypertension Asthma not an active issue Hospital course: Patient was admitted with alcohol use disorder and alcohol withdrawal, patient has been evaluated by 2 psychiatrist during this hospitalization and found her does not meet criteria for inpatient psychiatry admission. Based upon my evaluation patient has capacity to make decision Patient was very anxious. And she was placed on Valium. However she is fully awake and oriented, she was walking in the hallway [id number]. Few days prior to leaving patient was planning to go to [facility] upon discharge On 02/06/2024 the bedside nurse called me in the morning stated that the patient's wants to leave now otherwise she will leave AMA. Patient encouraged against leaving AMA and just explained Patient apparently left AMA, as per nurse her son-in-law came to pick her up. Patient left AMA before I have a chance to see her or talk to her again Based upon my evaluation patient has capacity to make medical decision Patient Condition at Discharge: Fair Plan - Discharge Summary Discharge Rx Participant: No New Discharge Prescriptions: No Action tiZANidine [Zanaflex] 4 mg PO TID Dextroamphetamine/Amphetamine [Adderall] 15 mg PO BID buPROPion XL [Wellbutrin XL] 300 mg PO DAILY amLODIPine [Norvasc] 5 mg PO DAILY Albuterol Inhaler [Ventolin Hfa Inhaler] 2 puff INHALATION Q6HR Venlafaxine HCl [Effexor XR] 75 mg PO DAILY diazePAM [Valium] 5 mg PO QID Montelukast [Singulair] 10 mg PO DAILY Gabapentin 300 mg PO TID Folic Acid 1 mg PO DAILY Vitamin B Complex 1 cap PO DAILY Fluticasone/Umeclidin/Vilanter [Trelegy Ellipta 100-62.5-25] 1 puff INHALATION DAILY Discharge Medication List Dextroamphetamine/Amphetamine [Adderall] 15 mg PO BID 02/01/24 [History] Folic Acid 1 mg PO DAILY 02/01/24 [History] Gabapentin 300 mg PO TID 02/01/24 [History] Montelukast [Singulair] 10 mg PO DAILY 02/01/24 [History] Venlafaxine HCl [Effexor XR] 75 mg PO DAILY 02/01/24 [History] Vitamin B Complex 1 cap PO DAILY 02/01/24 [History] amLODIPine [Norvasc] 5 mg PO DAILY 02/01/24 [History] buPROPion XL [Wellbutrin XL] 300 mg PO DAILY 02/01/24 [History] diazePAM [Valium] 5 mg PO QID 02/01/24 [History] tiZANidine [Zanaflex] 4 mg PO TID 02/01/24 [History] Albuterol Inhaler [Ventolin Hfa Inhaler] 2 puff INHALATION Q6HR 02/04/24 [History] Fluticasone/Umeclidin/Vilanter [Trelegy Ellipta 100-62.5-25] 1 puff INHALATION DAILY 02/04/24 [History] Follow up Appointment(s)/Referral(s): None,Stated [Primary Care Provider] - 1-2 days [facility] [NON-STAFF] - 1 Week Discharge/Stand Alone Forms: AA Meetings [address] - [facility], AA Meetings [facility], Who Do I Call?, Community Resources, Outpatient Counseling, Inp Substance Abuse Facilities Discharge Disposition: LEFT AGAINST MEDICAL ADVICE
== END 2024-02-06 11:58 | disposition left against medical advice (07) | DRG 880 ==
LOC: EC 16:21 → 5NMEDONC 22:07
PROVIDERS: ADMIT Internal Medicine; ATTEND Internal Medicine
DX: R45.851 Suicidal ideations (principal); F10.239 Alcohol dependence with withdrawal, unspecified; J45.901 Unspecified asthma with (acute) exacerbation; F10.229 Alcohol dependence with intoxication, unspecified; E87.6 Hypokalemia; E83.42 Hypomagnesemia; F17.200 Nicotine dependence, unspecified, uncomplicated; F32.A Depression, unspecified; J44.9 Chronic obstructive pulmonary disease, unspecified; F43.10 Post-traumatic stress disorder, unspecified; I10 Essential (primary) hypertension; F41.9 Anxiety disorder, unspecified; Z79.899 Other long term (current) drug therapy; Z79.51 Long term (current) use of inhaled steroids
CPT/HCPCS: 36415; 80048; 80306; 80320; 82075; 83735; 84132; 85025; 96361; 96374; 96375; 96376; 99285